=== PATIENT | female | born 1995 | race Hispanic/Latino ===

== ENCOUNTER → 2019-02-11 | Day surgery (SDC) | payer OTHER ==
[2019-02-07 15:38] LABS: BASOPHILS % 0.4 % (0.0-1.0); HEMATOCRIT 35.5 % (34.2-44.1); HEMOGLOBIN 11.4 g/dL (12.0-16.0); LYMPHOCYTES % 38.2 % (18.0-39.1); MEAN CORPUSCULAR HEMOGLOBIN 26.1 pg (28-32); MEAN CORPUSCULAR HGB CONC 32.1 g/dL (31-35); MEAN CORPUSCULAR VOLUME 81.2 fL (81-99); MONOCYTES % 4.8 % (4.4-11.3); NEUTROPHILS % 55.3 % (38.7-80.0); PLATELET COUNT 349 x10e3/uL (140-360); RED BLOOD COUNT 4.37 x10e6/uL (3.6-5.1); RED CELL DISTRIBUTION WIDTH 13.3 % (11.7-14.4)
[2019-02-07 15:39] LABS: EOSINOPHILS # (AUTO) 0.1 (0.0-0.4); LYMPHOCYTES # (AUTO) 2.9 (1.0-3.2); MONOCYTES # (AUTO) 0.4 (0.2-0.8); NEUTROPHILS # (AUTO) 4.2 (2.1-6.9)
[~2019-02-11] MED LIST: ACETAMINOPHEN 1000 MG/100 ML 100 ML IV ONE; ACETAMINOPHEN/CODEINE 300MG - 30MG TAB ONE; ALBUTEROL0.63 MG/3 INH; BUPIVACAINE 0.25%/EPI 30ML SDV INJ ONE; CETIRIZINE HCL10 MG PO; DEXAMETHASONE SOD PHOS INJ 4 MG/ML VIAL ONE; FENTANYL CITRATE/PF 100MCG/2 ML INJ ONE; IBUPROFEN200 MG PO; INHALER INH; KETOROLAC TROMETHAMINE 30 MG/ML VIAL ONE; LIDOCAINE HCL 2% LOCAL INJ 5 ML SDV VIAL INJ ONE; MIDAZOLAM HCL 2 MG/2 ML VIAL ONE; ONDANSETRON HCL INJ 2MG/ML 2ML 2 MG/ML VIAL ONE; PROPOFOL IV EMULSION 10 MG/ML 20 ML VIAL ONE; ROCURONIUM BROMIDE 10 MG/ML 5ML VIAL ONE; SEVOFLURANE INHAL SOLN 250 ML PEN BTL ONE; ULTRAM 50MG50 MG PO; VIT D2 PO
--- OUTSIDE RECORDS SUMMARY | 2019-02-11 10:26 | XMS REPORT ---
Author Author [facility] Address Unknown Phone Unavailable Care Team Providers Care Recycling Assistant Name Role Phone Unavailable Unavailable Payers Payer Name Policy Type Policy Number Effective Date Expiration Date Problems This patient has no known problems. Allergies, Adverse Reactions, Alerts Allergy Name Allergy Type Status Severity Reaction(s) Onset Date Inactive Date Treating Clinician Comments amoxicillin DA Active SV 2018-12-28 00:00:00 shrimp FA Active SV 2018-12-28 00:00:00 Medications This patient has no known medications. Results Test Description Test Time Test Comments Text Results Atomic Results Result Comments - DUP AB/PEL/SC/LTD 2019-01-19 02:15:00 Name: ARMIN MCCLELLAND [facility] : 1995 Age/S: 23 / F [address] [place] [address] Unit #: [id number] Loc: [place] [address] Phys: Rosa Maria Martines NP Acct: [id number] Dis Date: Status: REG ER PHONE #: [phone] Exam Date: 01/19/2019 0159 FAX #: [phone] Reason: see US Pelvic Non OB Complete EXAMS: CPT CODE: [id number] DUP AB/PEL/SC/LTD 51165 Pelvic and transvaginal ultrasound dated 01/19/2019. HISTORY: Pelvic pain. A transabdominal pelvic ultrasound was performed however was limited by low bladder volume. Transvaginal imaging was therefore performed to better visualize the uterus and ovaries. Correlation is made with a prior pelvic ultrasound dated 12/28/2018. The uterus measures approximately 7.5 x 3.4 x 4.7 cm and has a normal contour. No abnormalities of the myometrium are identified. The endometrium is thickened measuring 13 mm in the fundus. The right ovary measures 2.6 x 1.7 x 2.7 cm and maintains normal echotexture. The left ovary measures 3.7 x 3.2 x 3.0 cm and contains a 2.6 x 1.9 x 2.0 cm cyst. Ovarian blood flow is documented bilaterally using Doppler ultrasound. No adnexal masses or pelvic fluid collections are identified. IMPRESSION: 1. No acute sonographic abnormalities of the pelvis are detected. 2. Thickening of the endometrium (13 mm in the fundus) is new since the prior ultrasound of 12/28/2018 and likely represents endometrial hyperplasia. 3. The left ovary contains a 2.6 cm cyst. There is no evidence of associated ovarian torsion. SL: 131 at 0215 Reported and signed by: Sridhar Grijalva M.D. CC: Rosa Maria Martines NP Technologist: Josefina Arango RDMS(A)(OB) Trnmeb Date/Time: 01/19/2019 (214) tMARTINE Orig Print D/T: S: 01/19/2019 (217) Probe: PAGE 1 Signed Report - US PELVIS COMPLETE 2019-01-19 02:15:00 Name: ARMIN MCCLELLAND [facility] : 1995 Age/S: 23 / F [address] [place] [address] Unit #: [id number] Loc: [place] [address] Phys: Rosa Maria Martines NP Acct: [id number] Dis Date: Status: REG ER PHONE #: [phone] Exam Date: 01/19/2019157 FAX #: [phone] Reason: abd pain, h/o ovarian cysts EXAMS: CPT CODE: [id number] US PELVIS COMPLETE 97481 Pelvic and transvaginal ultrasound dated 01/19/2019. HISTORY: Pelvic pain. A transabdominal pelvic ultrasound was performed however was limited by low bladder volume. Transvaginal imaging was therefore performed to better visualize the uterus and ovaries. Correlation is made with a prior pelvic ultrasound dated 12/28/2018. The uterus measures approximately 7.5 x 3.4 x 4.7 cm and has a normal contour. No abnormalities of the myometrium are identified. The endometrium is thickened measuring 13 mm in the fundus. The right ovary measures 2.6 x 1.7 x 2.7 cm and maintains normal echotexture. The left ovary measures 3.7 x 3.2 x 3.0 cm and contains a 2.6 x 1.9 x 2.0 cm cyst. Ovarian blood flow is documented bilaterally using Doppler ultrasound. No adnexal masses or pelvic fluid collections are identified. IMPRESSION: 1. No acute sonographic abnormalities of the pelvis are detected. 2. Thickening of the endometrium (13 mm in the fundus) is new since the prior ultrasound of 12/28/2018 and likely represents endometrial hyperplasia. 3. The left ovary contains a 2.6 cm cyst. There is no evidence of associated ovarian torsion. SL: 131 at 021 Reported and signed by: Sridhar Grijalva M.D. CC: Rosa Maria Martines NP Technologist: Josefina Arango RDMS(Delfino)(OB) Trnmeb Date/Time: 01/19/2019 (214) tMARTINE Orig Print D/T: S: 01/19/2019 (021) Probe: PAGE 1 Signed Report - US TRANSVAGINAL NON OB 2019-01-19 02:15:00 Name: ARMIN MCCLELLAND [facility] : 1995 Age/S: 23 / F [address] [place] [address] Unit #: [id number] Loc: [place] [address] Phys: Rosa Maria Martines NP Acct: [id number] Dis Date: Status: REG ER PHONE #: [phone] Exam Date: 01/19/2019157 FAX #: [phone] Reason: see US Pelvic Non OB Complete EXAMS: CPT CODE: [id number] [place] [address] Pelvic and transvaginal ultrasound dated 01/19/2019. HISTORY: Pelvic pain. A transabdominal pelvic ultrasound was performed however was limited by low bladder volume. Transvaginal imaging was therefore performed to better visualize the uterus and ovaries. Correlation is made with a prior pelvic ultrasound dated 12/28/2018. The uterus measures approximately 7.5 x 3.4 x 4.7 cm and has a normal contour. No abnormalities of the myometrium are identified. The endometrium is thickened measuring 13 mm in the fundus. The right ovary measures 2.6 x 1.7 x 2.7 cm and maintains normal echotexture. The left ovary measures 3.7 x 3.2 x 3.0 cm and contains a 2.6 x 1.9 x 2.0 cm cyst. Ovarian blood flow is documented bilaterally using Doppler ultrasound. No adnexal masses or pelvic fluid collections are identified. IMPRESSION: 1. No acute sonographic abnormalities of the pelvis are detected. 2. Thickening of the endometrium (13 mm in the fundus) is new since the prior ultrasound of 12/28/2018 and likely represents endometrial hyperplasia. 3. The left ovary contains a 2.6 cm cyst. There is no evidence of associated ovarian torsion. SL: 131 at 0215 Reported and signed by: Sridhar Grijalva M.D. CC: Rosa Maria Martines NP Technologist: Josefina Arango RDMS(Delfino)(OB) Trnscb Date/Time: 01/19/2019 (214) Meaagn Orig Print D/T: S: 01/19/2019 (217) Probe: [id number] PAGE 1 Signed Report UR HCG QUAL 2019-01-19 01:27:00 UR HCG QUAL (test code=HCGQLU) NEGATIVE NEGATIVE UA RFLX MICR CULT IF [id number] 01:23:00* Test Item Value Reference Range Comments UA COLOR (test code=COLU) YELLOW YEL/STRAW UA APPEARANCE (test code=APPU) CLEAR CLEAR UA GLUCOSE DIPSTICK (test code=DGLUU) NEGATIVE NEGATIVE UA BILIRUBIN DIPSTICK (test code=BILU) NEGATIVE NEGATIVE UA KETONE DIPSTICK (test code=KETU) NEGATIVE NEGATIVE UA SPECIFIC GRAVITY (test code=SGU) 1.023 1.005-1.030 UA BLOOD DIPSTICK (test code=GEO) NEGATIVE NEGATIVE UA PH DIPSTICK (test code=TRACY) 6.0 5.0-7.0 UA PROTEIN DIPSTICK (test code=PROU) NEGATIVE NEGATIVE UA UROBILINIOGEN DIPSTICK (test code=URO) 2.0 mg/dL 0.2-1.0 UA NITRITE DIPSTICK (test code=FRED) NEGATIVE NEGATIVE UA LEUKOCYTE ESTERASE DIPSTICK (test code=LEUU) NEGATIVE NEGATIVE UA WBC (test code=WBCU) 0-3 WBC/HPF 0-3 UA RBC (test code=RBCU) 0-3 RBC/HPF 0-3 UA WBC NO REFLEX (test code=WBCUCL) 0-3 WBC/HPF 0-3 UA BACTERIA (test code=BACU) NONE SEEN /HPF NONE SEEN UA SQUAMOUS CELLS (test code=SQU) 0-5 /HPF NONE SEEN UA MUCUS (test code=MUCU) TRACE /LPF NONE SEEN Indication for culture: Suprapubic PainSpecimen Description: CLEAN CATCH- DUP AB/PEL/SC/[id number] 08:02:00 Name: ARMIN MCCLELLAND [facility] : 1995 Age/S: 23 / F [address] [place] [address] Unit #: [id number] Loc: [place] [address] Phys: Shahid Lopez MD Acct: [id number] Dis Date: Status: DEP ER PHONE #: [phone] Exam Date: 12/28/20182004 FAX #: [phone] Reason: BILATERAL LOWER ABD PAIN EXAMS: CPT CODE: [id number] DUP AB/PEL/SC/LTD 59030 PROCEDURE: Transabdominal and transvaginal pelvic ultrasound. INDICATION: Bilateral lower abdominal pelvic pain. COMPARISON: None. FINDINGS: Transvaginal study performed to attempt better characterization of the uterus and ovaries. Uterus: Uterus appears unremarkable. Uterus measures approximately 8 cm in length. Uterus is anteverted. Endometrium measures 5-6 mm in length. Ovaries and adnexa: Right ovary appears normal with follicles. Arterial Doppler flow within the right ovary. Right ovary measures up to 3.4 cm. Left ovary appears unremarkable with follicles. Arterial Doppler flow within the left ovary. Left ovary measures up to 3.1 cm. No free fluid identified. IMPRESSION: 1. Negative study. SL: [id number] at 0802 Reported and signed by: Raúl Pitt M.D. CC: Shahid Lopez MD Technologist: Marely Lujan RDMS() Trnscb Date/Time: 12/31/2018 (801) [email or web address] Orig Print D/T: S: 12/31/2018 (801) Probe: PAGE 1 Signed Report COMPREHENSIVE METABOLIC [id number] 21:08:00* Test Item Value Reference Range Comments SODIUM (test code=NA) 138 mEq/L 134-147 POTASSIUM (test code=K) 3.6 mEq/L 3.4-5.0 CHLORIDE (test code=CL) 106 mEq/L 100-108 CARBON DIOXIDE (test code=CO2) 25 mEq/L 21-33 ANION GAP (test code=GAP) 11 0-20 GLUCOSE (test code=GLU) 92 mg/dL 70-110 BLOOD UREA NITROGEN (test code=BUN) 7 mg/dL 7-18 GLOMERULAR FILTRATION RATE (test code=GFR) 89.7 110-120 Units of measure=ml/min/1.73 m2 CREATININE (test code=CREAT) 0.8 mg/dL 0.6-1.3 TOTAL PROTEIN (test code=PROT) 7.9 g/dL 6.4-8.2 ALBUMIN (test code=ALB) 4.10 g/dL 3.4-5.0 CALCIUM (test code=CA) 9.6 mg/dL 8.0-10.5 BILIRUBIN TOTAL (test code=BILT) 0.2 MG/DL <1.5 SGOT/AST (test code=AST) 33 IUnit/L 15-37 SGPT/ALT (test code=ALT) 72 IUnit/L 15-65 ALKALINE PHOSPHATASE TOTAL (test code=ALKP) 110 IUnit/L 20-125 COMPREHENSIVE METABOLIC [id number] 21:02:00* Test Item Value Reference Range Comments SODIUM (test code=NA) 138 mEq/L 134-147 POTASSIUM (test code=K) 3.6 mEq/L 3.4-5.0 CHLORIDE (test code=CL) 106 mEq/L 100-108 CARBON DIOXIDE (test code=CO2) 25 mEq/L 21-33 ANION GAP (test code=GAP) 11 0-20 GLUCOSE (test code=GLU) 92 mg/dL 70-110 BLOOD UREA NITROGEN (test code=BUN) 7 mg/dL 7-18 GLOMERULAR FILTRATION RATE (test code=GFR) 110-120 CREATININE (test code=CREAT) mg/dL 0.6-1.3 TOTAL PROTEIN (test code=PROT) g/dL 6.4-8.2 ALBUMIN (test code=ALB) g/dL 3.4-5.0 CALCIUM (test code=CA) 9.6 mg/dL 8.0-10.5 BILIRUBIN TOTAL (test code=BILT) MG/DL <1.5 SGOT/AST (test code=AST) IUnit/L 15-37 SGPT/ALT (test code=ALT) IUnit/L 15-65 ALKALINE PHOSPHATASE TOTAL (test code=ALKP) IUnit/L 20-125 UR HCG [id number] 20:58:00* Test Item Value Reference Range Comments UR HCG QUAL (test code=HCGQLU) NEGATIVE NEGATIVE URINALYSIS [id number] 20:57:00* Test Item Value Reference Range Comments UA COLOR (test code=COLU) STRAW YEL/STRAW UA APPEARANCE (test code=APPU) CLEAR CLEAR UA GLUCOSE DIPSTICK (test code=DGLUU) NEGATIVE NEGATIVE UA BILIRUBIN DIPSTICK (test code=BILU) NEGATIVE NEGATIVE UA KETONE DIPSTICK (test code=KETU) NEGATIVE NEGATIVE UA SPECIFIC GRAVITY (test code=SGU) 1.011 1.005-1.030 UA BLOOD DIPSTICK (test code=GEO) NEGATIVE NEGATIVE UA PH DIPSTICK (test code=TRACY) 5.0 5.0-7.0 UA PROTEIN DIPSTICK (test code=PROU) NEGATIVE NEGATIVE UA UROBILINIOGEN DIPSTICK (test code=URO) 0.2 mg/dL 0.2-1.0 UA NITRITE DIPSTICK (test code=FRED) NEGATIVE NEGATIVE UA LEUKOCYTE ESTERASE DIPSTICK (test code=LEUU) NEGATIVE NEGATIVE UA RBC (test code=RBCU) 0-3 RBC/HPF 0-3 UA WBC NO REFLEX (test code=WBCUCL) 0-3 WBC/HPF 0-3 UA BACTERIA (test code=BACU) TRACE /HPF NONE SEEN UA SQUAMOUS CELLS (test code=SQU) 0-5 /HPF NONE SEEN UA MUCUS (test code=MUCU) TRACE /LPF NONE SEEN CBC W/AUTO [id number] 20:55:00* Test Item Value Reference Range Comments WHITE BLOOD CELL (test code=WBC) 10.06 x10 3/uL 4.5-11.0 RED BLOOD CELL (test code=RBC) 4.46 x10 6/uL 3.54-5.02 HEMOGLOBIN (test code=HGB) 11.7 g/dL 11.0-15.0 HEMATOCRIT (test code=HCT) 36.5 % 33.0-45.0 MEAN CELL VOLUME (test code=MCV) 81.8 fL 81.0-99.0 MEAN CELL HGB (test code=MCH) 26.2 pg 27.0-33.0 MEAN CELL HGB CONCETRATION (test code=MCHC) 32.1 g/dL 33.0-37.0 RED CELL DISTRIBUTION WIDTH CV (test code=RDW) 13.3 % 11.5-14.5 RED CELL DISTRIBUTION WIDTH SD (test code=RDW-SD) 40.1 fL 37.0-54.0 PLATELET COUNT (test code=PLT) 371 x10 3/uL 150-400 MEAN PLATELET VOLUME (test code=MPV) 9.9 fL 7.0-9.0 NEUTROPHIL % (test code=NT%) 66.7 % 56.0-77.0 IMMATURE GRANULOCYTE % (test code=IG%) 0.4 % 0.0-2.0 LYMPHOCYTE % (test code=LY%) 25.7 % 14.0-32.0 MONOCYTE % (test code=MO%) 6.1 % 4.8-9.0 EOSINOPHIL % (test code=EO%) 0.9 % 0.3-3.7 BASOPHIL % (test code=BA%) 0.2 % 0.0-2.0 NUCLEATED RBC % (test code=NRBC%) 0.0 % 0-0 NEUTROPHIL # (test code=NT#) 6.71 x10 3/uL 2.0-7.6 IMMATURE GRANULOCYTE # (test code=IG#) 0.04 x10 3/uL 0.00-0.03 LYMPHOCYTE # (test code=LY#) 2.59 x10 3/uL 1.0-3.8 MONOCYTE # (test code=MO#) 0.61 x10 3/uL 0.1-0.8 EOSINOPHIL # (test code=EO#) 0.09 x10 3/uL 0.0-0.2 BASOPHIL # (test code=BA#) 0.02 x10 3/uL 0.0-0.2 NUCLEATED RBC # (test code=NRBC#) 0.00 x10 3/uL 0.0-0.1 MANUAL DIFF REQUIRED (test code=MDIFF) NO - US TRANSVAGINAL NON [id number] 20:12:00 Name: ARMIN MCCLELLAND [facility] : 1995 Age/S: 23 / F [address] [place] [address] Blvd Unit #: [id number] Loc: [place] [address] Phys: Shahid Lopez MD Acct: [id number] Dis Date: Status: REG ER PHONE #: [phone] Exam Date: 12/28/20182004 FAX #: [phone] Reason: BILATERAL LOWER ABD PAIN EXAMS: CPT CODE: [id number] [place] [address] PROCEDURE: Transabdominal and transvaginal pelvic ultrasound. INDICATION: Bilateral lower abdominal pelvic pain. COMPARISON: None. FINDINGS: Transvaginal study performed to attempt better characterization of the uterus and ovaries. Uterus: Uterus appears unremarkable. Uterus measures approximately 8 cm in length. Uterus is anteverted. Endometrium measures 5-6 mm in length. Ovaries and adnexa: Right ovary appears normal with follicles. Arterial Doppler flow within the right ovary. Right ovary measures up to 3.4 cm. Left ovary ap pears unremarkable with follicles. Arterial Doppler flow within the left ovary. Left ovary measures up to 3.1 cm. No free fluid identified . IMPRESSION: 1. Negative study. SL: Aguila SOMMER at 2011 Reported and signed by: Raúl Pitt M.D. CC: Shahid Lopez MD Technologist: Marely Lujan RDMS() Trnscb Date/Time: 12/28/2018 (2011) Elva [id number] Orig Print D/T: S: 12/28/2018 (2014) Probe: [id number] PAGE 1 Signed Report - US PELVIS [id number] 20:12:00 Name: ARMIN MCCLELLAND [facility] : 1995 Age/S: 23 / F [address] [place] [address] Unit #: [id number] Loc: [place] [address] Phys: Shahid Lopez MD Acct: [id number] Dis Date: Status: REG ER PHONE #: [phone] Exam Date: 12/28/20182004 FAX #: [phone] Reason: Bilateral lower abd. pain EXAMS: CPT CODE: [id number] US PELVIS COMPLETE 74104 PROCEDURE: Transabdominal and transvaginal pelvic ultrasound. INDICATION: Bilateral lower abdominal pelvic pain. COMPARISON: None. FINDINGS: Transvaginal study performed to attempt better characterization of the uterus and ovaries. Uterus: Uterus appears unremarkable. Uterus measures approximately 8 cm in length. Uterus is anteverted. Endometrium measures 5-6 mm in length. Ovaries and adnexa: Right ovary appears normal with follicles. Arterial Doppler flow within the right ovary. Right ovary measures up to 3.4 cm. Left ovary ap pears unremarkable with follicles. Arterial Doppler flow within the left ovary. Left ovary measures up to 3.1 cm. No free fluid identified . IMPRESSION: 1. Negative study. SL: Aguila SOMMER at 2011 Reported and signed by: Raúl Pitt M.D. CC: Shahid Lopez MD Technologist: Marely Lujan RDMS() Trnscb Date/Time: 12/28/2018 (2011) Elva [id number] Orig Print D/T: S: 12/28/2018 (2014) Probe: PAGE 1 Signed Report
[2019-02-11 15:30] VITALS: BP 112/72
--- NOTE | 2019-03-01 04:42 | Operative Report ---
DATE OF PROCEDURE: SURGEON: Sirisha Justice MD PREOPERATIVE DIAGNOSES: Adnexal mass, endometriosis, and pelvic pain. POSTOPERATIVE DIAGNOSES: Adnexal mass, endometriosis, and pelvic pain. PROCEDURES: Laparoscopy, excision of left ovarian cysts, and ablation of endometriosis. COMPLICATIONS: None. ESTIMATED BLOOD LOSS: Minimal. DESCRIPTION OF PROCEDURE: The patient was taken to the OR. General anesthesia was induced. She was prepped and draped in a sterile fashion and placed in dorsal lithotomy position. After placement of HUMI self-retaining uterine manipulator, gloves were changed and two Allis clamps were applied on the umbilicus to pina the umbilicus. Infraumbilical skin incision was made with a scalpel, taken all the way down to fascia. Subcutaneous 10 mm bladeless trocar and cannula was passed through the abdominal wall into the abdominal cavity. Trocar was removed. Scope was passed through the sleeve into the abdominal cavity. Two other ports were made in the right side of the abdomen after making 5 mm skin incision with a scalpel and 5 mm bladeless trocar and cannula was passed through the abdominal wall into the abdominal cavity under direct visualization using a grasper and the LigaSure left ovarian cyst was excised. Hemostasis was achieved using the bipolar [place] and cauterizing the ovarian cyst bed and following this, suction and irrigation of the peritoneal cavity was performed. Endometriosis was noticed in the pelvis in the posterior leaflet of the peritoneum and was touched using the [place] bipolar energy. The right ovary and tube were normal. Uterus was normal. Upper abdomen looked grossly normal. Gas was removed from the abdomen. Trocars were removed and the incision was approximated using Dermabond. Marcaine with epinephrine was injected subcutaneously. The patient tolerated the procedure well. Lap, instrument, and needle counts were correct x2 at the end of the procedure. Sirisha Justice MD DD/MODL /[id number]
== END | disposition home or self-care (01) ==
LOC: OR 10:24
PROVIDERS: ATTEND Obstetrics & Gynecology
DX: N83.202 Unspecified ovarian cyst, left side (principal); N80.3 Endometriosis of pelvic peritoneum; Z01.812 Encounter for preprocedural laboratory examination
CPT/HCPCS: 36415; 58563; 58661; 81025; 84702; 85025; 88304; J0131; J1100; J1885; J2001; J2250; J2405; J2704; J3010